=== PATIENT | male | born 1955 | race Caucasian/White ===

== ENCOUNTER 2018-05-19 12:21 | Emergency (ER) | payer BC ==
[2018-05-19] MEDS ORDERED: DEXAMETHASONE 10 MG/ML VIAL PO STA (15:46)
[2018-05-19] MEDS ORDERED: CYCLOBENZAPRINE 10 MG TABLET PO STA (15:46)
[2018-05-19] MEDS ORDERED: KETOROLAC 60 MG/2 ML VIAL IM STA (15:46)
--- NOTE | 2018-05-19 15:49 | ED Physician Documentation ---
PD HPI BACK PAIN - Stated complaint Stated Complaint: BACK PAIN - Chief complaint Chief Complaint: Back Pain - History obtained from History obtained from: Patient, Family - History of Present Illness Timing - onset: How many weeks ago (2) Timing - duration: Weeks (2) Timing - details: Gradual onset Pain level max: 8 Pain level now: 2 Location: Upper Quality: Pain, Spasm, Sharp Associated symptoms: No: Fever, Weakness, Numbness, Incontinent of urine, Unable to urinate, Hematuria, Incontinent of stool Improves with: Rest Worsened by: Movement (lifting his arms. Moving into a new home and lifting boxes.) Contributing factors: Lifting, Twisting. No: Trauma, Anticoagulated, Cancer, IVDA Similar symptoms before: Has not had sx before Recently seen: Not recently seen Review of Systems Ten Systems: 10 systems reviewed and negative Constitutional: denies: Fever, Chills Cardiac: denies: Chest pain / pressure Respiratory: denies: Cough GI: denies: Vomiting : denies: Dysuria, Incontinent Skin: denies: Rash Musculoskeletal: denies: Neck pain Neurologic: denies: Focal weakness, Numbness, Headache PD PAST MEDICAL HISTORY - Past Medical History Past Medical History: Yes Cardiovascular: Deep vein thrombosis Respiratory: None Endocrine/Autoimmune: None GI: None : None Psych: None Derm: None - Past Surgical History General: Appendectomy - Present Medications Home Medications: Ambulatory Orders Medication Instructions Recorded Confirmed Cyclobenzaprine [Flexeril] 10 mg PO TID PRN #20 tablet 05/19/18 Meloxicam [Mobic] 15 mg PO DAILY PRN #20 tablet 05/19/18 predniSONE [Deltasone] 10 mg PO [id number] #42 tab 05/19/18 - Allergies Allergies/Adverse Reactions: Allergies Allergy/AdvReac Type Severity Reaction Status Date / Time No Known Drug Allergies Allergy Verified 05/19/18 12:43 - Social History Does the pt smoke?: No Smoking Status: Never smoker PD ED PE NORMAL - Vitals Vital signs reviewed: Yes - General General: Alert and oriented X 3, No acute distress, Well developed/nourished - HEENT HEENT: Atraumatic, Moist mucous membranes - Neck Neck: Supple, no meningeal sign, No bony TTP - Cardiac Cardiac: RRR, Strong equal pulses - Respiratory Respiratory: No respiratory distress, Clear bilaterally - Abdomen Abdomen: Soft, Non tender, Non distended - Back Back: No spinal TTP, Other (No spinal tenderness to palpation or percussion. There is paraspinal spasm bilateral mid thoracic area. Pain is reproduced with movement of the arms.) - Derm Derm: Warm and dry - Extremities Extremities: No deformity, No edema, No calf tenderness / cord - Neuro Neuro: Alert and oriented X 3, No motor deficit, No sensory deficit, Other (Normal bilateral lower extremity patellar and ankle jerk reflexes. Normal great toe extension bilaterally. no saddle anesthesia) - Psych Psych: Normal mood, Normal affect Results - Vitals Vitals: Vital Signs - 24 hr 05/19/18 05/19/18 05/19/18 12:41 14:29 16:17 Temperature 36.0 C L 36.3 C L 36.3 C L Heart Rate 97 89 92 Respiratory 18 12 17 Rate Blood Pressure 161/90 H 140/95 H 144/103 H O2 Saturation 100 94 97 Oxygen O2 Source Room air PD MEDICAL DECISION MAKING - ED course Complexity details: considered differential (No cauda equina, no spinal epidural abscess, no fracture, no aortic dissection or evidence of aneursym rupture), d/w patient ED course: 62-year-old male with what appears to be a myofascial strain secondary to moving boxes while moving into his new home. Possible disc injury as well? Does not appear to be related to any aortic dissections or aneurysms. No neurological deficits at this time. We will continue supportive care and follow-up with his doctor. Patient counseled regarding signs and symptoms for which I believe and urgent re-evaluation would be necessary. Patient with good understanding of and agreement to plan and is comfortable going home at this time This document was made in part using voice recognition software. While efforts are made to proofread this document, sound alike and grammatical errors may occur. Departure - Departure Disposition: 01 Home, Self Care Clinical Impression: Upper back strain Qualifiers: Encounter type: initial encounter Qualified Code(s): S29.012A - Strain of muscle and tendon of back wall of thorax, initial encounter Condition: Good Instructions: ED Neck Back Pain General Follow-Up: Rahul Contreras MD [Provider Admit Priv/Credential] - (as scheduled this month) Prescriptions: Cyclobenzaprine [Flexeril] 10 mg PO TID PRN #20 tablet PRN Reason: Spasms Meloxicam [Mobic] 15 mg PO DAILY PRN #20 tablet PRN Reason: pain predniSONE [Deltasone] 10 mg PO [id number] #42 tab Comments: Take all medications as prescribed. Return if you worsen. Follow-up with your doctor for further care. Do not drive or operate heavy machinery while taking the Flexeril. Ice may also help this at night. Heat may help before activity Discharge Date/Time: 05/19/18 16:21
[2018-05-19 16:21] VITALS: BP 144/103
== END 2018-05-19 16:21 | disposition home or self-care (01) ==
LOC: ED 12:21
DX: S29.012A Strain of muscle and tendon of back wall of thorax, initial encounter (principal); X50.0XXA Overexertion from strenuous movement or load, initial encounter; Y93.E6 Activity, residential relocation; Y92.009 Unspecified place in unspecified non-institutional (private) residence as the place of occurrence of the external cause; Z86.718 Personal history of other venous thrombosis and embolism
CPT/HCPCS: 96372; 99283; A9270

== ENCOUNTER 2018-06-08 08:00 | Outpatient (CLI) | payer BC ==
--- NOTE | 2018-06-21 13:49 | XRAY Report ---
Reason: NECK AND BACK PAIN Procedure Date: 06/08/2018 Accession Number: [id number] / [id number] Procedure: XR - Thoracic Spine 2 View CPT Code: FULL RESULT: EXAM: THORACIC SPINE RADIOGRAPHY EXAM DATE: 06/08/2018 06:48 AM. CLINICAL HISTORY: Neck and back pain. COMPARISON: None. TECHNIQUE: 2 views. FINDINGS: The lateral thoracic spine radiograph is somewhat degraded by motion artifact limiting fine detail. Alignment: Thoracic kyphosis due to multilevel mild anterior wedging without dominant single level compression deformity. No spondylolysis or spondylolisthesis. Bones: No fractures or bone lesions. Disks: There is mild multilevel degenerative disk disease including marginal osteophytosis. Soft Tissues: Normal. The visualized lungs and cardiomediastinal silhouette are normal. IMPRESSION: Degenerative changes as described.
--- NOTE | 2018-06-21 14:12 | XRAY Report ---
Reason: NECK AND BACK PAIN Procedure Date: 06/08/2018 Accession Number: [id number] / [id number] Procedure: XR - Cervical Spine 2 View CPT Code: FULL RESULT: EXAM: CERVICAL SPINE RADIOGRAPHY EXAM DATE: 06/08/2018 06:45 AM. CLINICAL HISTORY: Neck and back pain. COMPARISONS: None. TECHNIQUE: 3 views. FINDINGS: Alignment: Normal. No spondylolisthesis or scoliosis. Bones: The cervical vertebral bodies and posterior elements are well visualized from the skull base through C6-C7. No fractures or bone lesions. Disks: Disk osteophyte complex formation at C5-C6 and to a lesser degree at C3-C4, otherwise mostly preserved disk joint spaces. Facets: No degenerative disease. Soft Tissues: Normal. No prevertebral soft tissue swelling. The visualized lung apices are clear. IMPRESSION: Mild degenerative changes, disk predominant.
== END 2018-06-08 23:59 | disposition home or self-care (01) ==
LOC: DI 08:00
PROVIDERS: ATTEND Family Medicine
DX: M50.31 Other cervical disc degeneration, high cervical region (principal); M51.34 Other intervertebral disc degeneration, thoracic region
CPT/HCPCS: 72040; 72070